=== PATIENT | female | born 2000 | race Two or more races ===

== ENCOUNTER 2025-03-25 19:19 | Emergency (ER) | payer MEDICAID, SELFPAY ==
[2025-03-25 19:20] VITALS: BMI 32.9
[2025-03-25 19:58] VITALS: BP 121/79; PULSE 88; RESP 18; TEMP 37.1; O2SAT 98
--- NOTE | 2025-03-25 20:10 | PD.EDRME ---
Rapid Medical Screening Exam RME Arrival date/time: 03/25/25 19:19 Chief Complaint: Abdominal Pain Time Seen by Provider: 03/25/25 19:32 Vital signs: Vital Signs Temperature 98.8 F 03/25/25 19:58 Pulse Rate 88 03/25/25 19:58 Respiratory Rate 18 03/25/25 19:58 Blood Pressure 121/79 03/25/25 19:58 Pulse Oximetry (%) 98 03/25/25 19:58 Oxygen Delivery Method Room Air 03/25/25 19:58 RME Narrative: Epigastric pain, nausea started today
--- NOTE | 2025-03-25 20:11 | XR_ITS ---
Examination: Abdomen sonogram, Limited Date and time of exam: March 25, 2025 10:31 PM INDICATIONS: Right upper abdominal pain beginning 5 hours ago Technique: Real-time monet scale transabdominal sonographic images of the upper abdomen obtained. Findings: Cholelithiasis, negative for cholecystitis Normal common bile duct 0.2 cm Pancreatic head 2.8 cm Liver 14.7 cm 23 mm focal area of probable fatty sparing Normal hepatopedal portal venous flow Patent IVC IMPRESSION: Cholelithiasis, negative for cholecystitis Recommend 6 month follow-up hepatic sonography to confirm focal fatty sparing right lobe of the liver
[2025-03-25 20:26] LABS: Basophils % (Auto) 0 % (0-2.5); Eosinophils % (Auto) 0 % (0-10); Hematocrit 37.6 % (36.0-46.0); Hemoglobin 13.1 g/dL (12.0-16.0); Immature Granulocytes % (Auto) 0 % (0-0); Immature Granulocytes Auto 0.03 Thou/mm3 (0.00-0.00); Lymphocytes # (Auto) 1.1 Thou/mm3 (1.0-4.8); Lymphocytes % (Auto) 11 % (10-50); Mean Corpuscular HGB Conc 34.8 g/dl (31.0-37.0); Mean Corpuscular Hemoglobin 28.6 pg (25.0-35.0); Mean Corpuscular Volume 82 fL (80-100); Monocytes # (Auto) 0.5 Thou/mm3 (0.0-0.8); Monocytes % (Auto) 5 % (0-12); Neutrophils # (Auto) 7.9 Thou/mm3 (1.8-7.7); Neutrophils % (Auto) 82 % (37-80); Nucleated Red Blood Cell % 0 /100 WBC (0); Platelet Count 210 Thou/mm3 (140-440); Red Blood Count 4.58 Miln/mm3 (4.00-5.20); White Blood Count 9.6 Thou/mm3 (3.6-11.0)
[2025-03-25 20:38] LABS: Collection Type, Urine Clean Catch
[2025-03-25 20:46] LABS: Alanine Aminotransferase 22 U/L (10-49); Albumin, Serum 4.4 gm/dL (3.5-5.0); Albumin/Globulin Ratio 1.3 (1.2-2.2); Alkaline Phosphatase 82 U/L (46-116); Anion Gap 9 (7-16); Aspartate Amino Transferase 26 U/L (0-34); BUN/Creatinine Ratio 13 Ratio (12-20); Bilirubin,Total 0.3 mg/dL (0.3-1.2); Blood Urea Nitrogen 9 mg/dL (9-23); Calcium 8.5 mg/dL (8.3-10.6); Calcium (Corrected) 8.5 mg/dL (8.5-10.1); Carbon Dioxide 24.2 mMol/L (20.0-31.0); Chloride 106 mMol/L (98-107); Creatinine (Component) 0.7 mg/dL (0.6-1.3); Estimated Creatinine Clearance 121.6 mL/min (>60); Globulin 3.5 gm/dL (2.3-3.5); Glucose 134 mg/dL (74-106); Lipase 29 U/L (12-53); Osmolality,Calculated 278 (275-295); Potassium 3.3 mMol/L (3.4-5.1); Sodium 139 mMol/L (136-145); Total Protein 7.9 gm/dL (5.7-8.2); eGFR > 60 See Note
[2025-03-25 20:50] LABS: HCG Qualitative,Urine Negative
[2025-03-25 20:51] LABS: Bilirubin,Urine Negative (Negative); Blood,Urine Trace (Negative); Clarity,Urine Turbid (Clear/Hazy); Color,Urine Yellow (Lt Yel-Yel); Glucose, Urine Negative (Negative); Ketones,Urine 1+ (Negative); Leukocyte Esterase,Urine Negative (Negative); Nitrite,Urine Negative (Negative); Protein,Urine 2+ (Neg - Trace); RBC,Urine 56 /hpf (0-3); Specific Gravity,Urine 1.041 (1.001-1.035); Squamous Epithelial Cell,Urine 38 /hpf (0-5); Urobilinogen,Urine Negative mg/dL (0.0-1.0); WBC,Urine 16 /hpf (0-5)
[2025-03-25] MEDS: ONDANSETRON ODT 4 MG TABRAP PO (21:22)
[2025-03-25] MEDS: KETOROLAC INJ 60 MG/2 ML VIAL 30 MG IM (21:24)
--- NOTE | 2025-03-25 23:06 | PD.EDABDPN ---
ED Abdominal Pain RME/HPI General Chief Complaint: Abdominal Pain Stated complaint: UMBILLICAL PAIN Time seen by provider: 03/25/25 19:32 Arrival date/time: 03/25/25 19:19 RME / HPI RME / HPI narrative: 24-year-old female patient with no significant medical history, came in for evaluation regarding right upper quadrant pain. Onset of symptoms since early today as right upper quadrant pain described as crampy, severity moderate. Denies any vomiting denies any fever denies any other complaints no medications taken prior to arrival. Related Data Home Medications ?Medication ?Instructions ?Recorded ?Confirmed vit no.95-ferrous 1 tab PO QDAY 07/22/22 10/18/22 fumarate 28 mg-folic acid 800 mcg tablet () Previous Rx's ?Medication ?Instructions ?Recorded methylcellulose (laxative) 500 mg 500 mg PO QDAY #30 tabs 12/26/22 tablet (Fiber Laxative (methylcellulose)) clindamycin HCl 300 mg capsule 300 mg PO TID #21 caps 08/12/23 ibuprofen 800 mg tablet 800 mg PO TID PRN pain #30 tabs 08/12/23 ibuprofen 800 mg tablet 800 mg PO TID PRN pain #30 tabs 10/15/23 dicyclomine 20 mg tablet 20 mg PO TID #30 tabs 03/25/25 ibuprofen 800 mg tablet 800 mg PO TID PRN pain #30 tabs 03/25/25 Allergies Allergy/AdvReac Type Severity Reaction Status Date / Time No Known Allergies Allergy Verified 10/15/23 14:14 Review of Systems Review of Systems Narrative Review of Systems: Review of system reviewed and within normal limits except mentioned in HPI ED Exam Narrative Physical exam: VITAL SIGNS: Reviewed. GENERAL APPEARANCE: Alert and interactive, follows commands, no acute distress, HEAD AND FACE: Non-traumatic. ENT: PERRL, pink conjunctivitis, eyelid no trauma, Mucous membrane moist. NECK: Supple, nontender, no nuchal rigidity. CHEST: No tenderness, no crepitus, no paradoxical movement, no retractions. LUNGS: Clear, well ventilated, symmetric, no rales, no wheezing, no ronchi, no stridor, good breath sounds bilaterally. HEART: Regular rate, regular rhythm, no murmur, no gallops. ABDOMEN: Soft, positive bowel sounds, nondistended, no guarding, right upper quadrant tenderness, no rebound, no masses, RECTAL: Deferred. GENITAL: Deferred. NEUROLOGICAL: Gross motor function intact sensory function intact, Appropriate for age. MUSCULOSKELETAL: low back nontender, full range of motion. EXTREMITIES: Nontender, full range of motion. SKIN: Color pink, dry, no rash, no lacerations, no abrasions, no contusions. LYMPHATICS: Deferred. Course Quality Measures none Orders Category Date Time Status US gall bladder Stat Exams 03/25/25 20:11 Taken CBC Stat Lab 03/25/25 20:20 Completed CMP [Comprehensive Metabolic Panel] Stat Lab 03/25/25 20:20 Completed HCG Qualitative,Urine Stat Lab 03/25/25 20:30 Completed Lipase Stat Lab 03/25/25 20:20 Completed UA [Urinalysis] Stat Lab 03/25/25 20:30 Completed Ketorolac Inj [Toradol Inj] Med 03/25/25 20:12 Discontinued 30 mg IM X1 ONE Ondansetron Odt [Zofran Odt] Med 03/25/25 20:12 Discontinued 4 mg PO X1 ONE Vital Signs Vital signs: Vital Signs Temperature 98.8 F 03/25/25 19:58 Pulse Rate 88 03/25/25 19:58 Respiratory Rate 18 03/25/25 19:58 Blood Pressure 121/79 03/25/25 19:58 Pulse Oximetry (%) 98 03/25/25 19:58 Oxygen Delivery Method Room Air 03/25/25 19:58 Abdominal Pain MDM MDM Narrative MDM Narrative:: 24-year-old female patient with no significant medical history, came in for evaluation regarding right upper quadrant pain. Onset of symptoms since early today as right upper quadrant pain described as crampy, severity moderate. Denies any vomiting denies any fever denies any other complaints no medications taken prior to arrival. Patient's workup today all came back unremarkable CBC no leukocytosis CMP no LFTs elevation total bili is normal. Urinalysis dirty collection. Ultrasound of the gallbladder showed cholelithiasis with no sign of acute cholecystitis. Results discussed with the patient. On reevaluation prior to discharge patient complained that her epigastric pain/right upper quadrant pain is totally gone. Patient was advised to follow-up with PCP and asked for referral to general surgeon regarding gallstones. Patient agrees with the plan Patient data External records reviewed:: None Clinical information provided by:: patient Social determinants that could affect healthcare access:: none Patient has the following chronic illnesses:: None How is presenting disease/condition affected by chronic disease/condition?: no chronic disease Evaluation data The following diagnostics were reviewed and interpreted by me:: lab results and radiology exam(s) Lab and/or radiology exams considered but not ordered:: None Interpretation Summary: See results MDM Medications / Prescriptions Medications or Prescriptions considered but not ordered:: None Medication administrations:: Medication Administration History Discontinued Medications Ketorolac Tromethamine (Ketorolac Inj 60 Mg/2 Ml Vial) 30 mg IM X1 ONE Stop: 03/25/25 20:13 Last Admin: 03/25/25 21:24 Dose: 30 mg Documented By: Ondansetron HCl (Ondansetron Odt 4 Mg Tabrap) 4 mg PO X1 ONE; Protocol Stop: 03/25/25 20:13 Last Admin: 03/25/25 21:22 Dose: 4 mg Documented By: Toradol and Zofran Consultations Consultation(s) initiated? (list below): No Diagnosis Differential diagnosis abdominal pain: abdominal pain, pancreatitis and other (Gallstone) Most likely diagnosis given after review of the tests above:: Biliary colic, gallstone Admission Indicated Admission indicated?: not indicated Explain why admission is indicated or not indicated:: Stable Admission Request Was there a request for admission?: No Disposition Plan Disposition Plan: Discharge Discharge Attestation Discharge Attestation: The patient and all family members were given an opportunity to ask questions and understood the discharge instructions. Discharge instructions specifically effects, indications for sooner follow up or return to the emergency department, and the expected course of current diagnosis. Patient condition: Stable Discharge Plan Plan Patient Disposition: HOME (Self Care) Discharge Disposition comment: Stable Prescriptions/Referrals Prescriptions/Med Rec: New dicyclomine 20 mg tablet 20 mg PO TID Qty: 30 0RF ibuprofen 800 mg tablet 800 mg PO TID PRN (Reason: pain) Qty: 30 0RF No Action PNV cmb#95-ferrous fumarate-FA [] 28 mg iron- 800 mcg tablet 1 tab PO QDAY Patient Comments: TAKE 1 TABLET BY MOUTH EVERY DAY FOR 30 DAYS ibuprofen 800 mg tablet 800 mg PO TID PRN (Reason: pain) Qty: 30 0RF Fiber Laxative(methylcellulos) 500 mg tablet 500 mg PO QDAY Qty: 30 0RF clindamycin HCl 300 mg capsule 300 mg PO TID Qty: 21 0RF ibuprofen 800 mg tablet 800 mg PO TID PRN (Reason: pain) Qty: 30 0RF Referrals: Guicho Francois MD [Primary Care Provider] - In 1 week Problem List Clinical Impression: Gallstone Patient/Caregiver Discharge Instructions Discharge Activity: activity as tolerated Education Materials: What Are Gallstones Additional Instructions: Thank you for the opportunity for serving you today. You are stable for discharged . You are advised to: Follow-up with your PCP in 1 to 2 days and ask your PCP to refer you to surgeon regarding your gallstone. Return to ED for worsening of symptoms Increase oral fluids Take medication as prescribed Print Language: Uzbek Stand Alone Forms: Isabel Award Info., Patient Portal Info Letter PA/JOSE Supervising Physician LYNSEY/JOSE Supervising Physician: MD Hardeep
[2025-03-25 23:12] VITALS: RESP 18
== END 2025-03-25 23:13 | disposition home or self-care (01) ==
PROVIDERS: Physician Assistant; Emergency Provider Emergency Medicine; PCP Family Medicine
DX: K80.20 Calculus of gallbladder without cholecystitis without obstruction (principal)
CPT/HCPCS: 36415; 76705; 80053; 81001; 81025; 83690; 85025; 96372; 99284; J1885; Q0162

== ENCOUNTER 2025-08-03 20:16 | Emergency (ER) | payer MEDICAID, SELFPAY ==
[2025-08-03 20:16] VITALS: BMI 33.6
[2025-08-03 21:50] VITALS: BP 108/69; PULSE 81; RESP 17; TEMP 37.2; O2SAT 98
--- NOTE | 2025-08-03 21:58 | XR_ITS ---
Examination: OB Transvaginal ultrasound of the pelvis, complete Technique: Transvaginal sonographic images pelvis performed using monet scale imaging Exam date and time: August 03, 2025, 1002 hrs. Indications: Pelvic pain and vaginal bleeding today Findings: Uterus 8.6 cm, intrauterine gestation with 5.8 cm corresponds to 5 weeks 4 days gestational age No pole, no cardiac activity Right ovary 4.9 cm arterial flow. Left ovary 3.5 cm arterial flow Mild fluid in the cul-de-sac Impression: Empty intrauterine gestational sac corresponding to 5 weeks 4 days gestational age Recommend short-term follow-up transvaginal pelvic sonography to confirm viability
--- NOTE | 2025-08-03 21:58 | PD.EDRME ---
Rapid Medical Screening Exam [facility] Arrival date/time: 08/03/25 20:16 24F at approximately 2-6 weeks and with no significant PMH presents to ED with 1 day of pelvic pain and vaginal spotting. Patient had positive at home test. Chief Complaint: Vaginal Bleeding Vital signs: Vital Signs Temperature 99.0 F 08/03/25 21:50 Pulse Rate 81 08/03/25 21:50 Respiratory Rate 17 08/03/25 21:50 Blood Pressure 108/69 08/03/25 21:50 Pulse Oximetry (%) 98 08/03/25 21:50 Oxygen Delivery Method Room Air 08/03/25 21:50
[2025-08-03 22:42] LABS: Basophils # (Auto) 0.1 Thou/mm3 (0.0-0.2); Basophils % (Auto) 1 % (0-2.5); Eosinophils # (Auto) 0.3 Thou/mm3 (0.0-0.5); Eosinophils % (Auto) 3 % (0-10); Hematocrit 33.7 % (36.0-46.0); Hemoglobin 11.6 g/dL (12.0-16.0); Immature Granulocytes Auto 0.02 Thou/mm3 (0.00-0.00); Lymphocytes # (Auto) 2.7 Thou/mm3 (1.0-4.8); Lymphocytes % (Auto) 31 % (10-50); Mean Corpuscular HGB Conc 34.4 g/dl (31.0-37.0); Mean Corpuscular Hemoglobin 29.2 pg (25.0-35.0); Mean Corpuscular Volume 85 fL (80-100); Monocytes # (Auto) 0.9 Thou/mm3 (0.0-0.8); Monocytes % (Auto) 10 % (0-12); Neutrophils # (Auto) 4.8 Thou/mm3 (1.8-7.7); Neutrophils % (Auto) 55 % (37-80); Nucleated Red Blood Cell # 0.00 Thou/mm3 (0.00-0.00); Nucleated Red Blood Cell % 0 /100 WBC (0); Platelet Count 273 Thou/mm3 (140-440); RDW Standard Deviation 39.8 fL (36.4-46.3); Red Blood Count 3.97 Miln/mm3 (4.00-5.20); White Blood Count 8.7 Thou/mm3 (3.6-11.0)
[2025-08-03 22:55] LABS: Collection Type, Urine Clean Catch
[2025-08-03 23:00] LABS: Amorphous Crystals,Urine Present (Absent); Bilirubin,Urine Negative (Negative); Blood,Urine 2+ (Negative); Clarity,Urine Clear (Clear/Hazy); Color,Urine Yellow (Lt Yel-Yel); Glucose, Urine Negative (Negative); Hyaline Casts,Urine < 1 /hpf (0-1); Ketones,Urine Trace (Negative); Leukocyte Esterase,Urine Positive (Negative); Nitrite,Urine Negative (Negative); PH,Urine 6.0 (5.0-7.0); Protein,Urine Trace (Neg - Trace); RBC,Urine 13 /hpf (0-3); Specific Gravity,Urine 1.030 (1.001-1.035); Squamous Epithelial Cell,Urine 7 /hpf (0-5); Urobilinogen,Urine Negative mg/dL (0.0-1.0); WBC,Urine 4 /hpf (0-5)
[2025-08-03 23:04] LABS: Alanine Aminotransferase 22 U/L (10-49); Albumin, Serum 4.3 gm/dL (3.5-5.0); Albumin/Globulin Ratio 1.4 (1.2-2.2); Alkaline Phosphatase 72 U/L (46-116); Anion Gap 7 (7-16); Aspartate Amino Transferase 15 U/L (0-34); BUN/Creatinine Ratio 10 Ratio (12-20); Bilirubin,Total 0.3 mg/dL (0.3-1.2); Blood Urea Nitrogen 6 mg/dL (9-23); Calcium 9.2 mg/dL (8.3-10.6); Calcium (Corrected) 9.2 mg/dL (8.5-10.1); Carbon Dioxide 24.1 mMol/L (20.0-31.0); Chloride 108 mMol/L (98-107); Creatinine (Component) 0.6 mg/dL (0.6-1.3); Estimated Creatinine Clearance 138.0 mL/min (>60); Globulin 3.0 gm/dL (2.3-3.5); Glucose 97 mg/dL (74-106); Osmolality,Calculated 275 (275-295); Potassium 3.4 mMol/L (3.4-5.1); Sodium 139 mMol/L (136-145); Total Protein 7.3 gm/dL (5.7-8.2); eGFR > 60 See Note
[2025-08-03 23:36] LABS: Beta HCG,Quantitative 9999 mIU/mL (<5.0)
[2025-08-04 00:04] VITALS: BP 122/72; PULSE 71; RESP 19; TEMP 36.7; O2SAT 98
--- NOTE | 2025-08-04 01:16 | PD.EDVAGBL ---
ED OB Contraction Preg RMI/HPI General Chief complaint: Vaginal Bleeding Stated complaint: VAGINAL BLEEDING SINCE 0700, + Time Seen by Provider: 08/03/25 23:23 Arrival date/time: 08/03/25 20:16 RME / HPI RME / HPI Narrative: 08/03/25 20:16 24F at approximately 2-6 weeks and with no significant PMH presents to ED with 1 day of pelvic pain and vaginal spotting. Patient had positive at home test. DR. GORDON MAIN ED EVALUATION: Patient LMP 06/17/2025 with recent positive test now presenting with vaginal bleeding/spotting earlier today. Mild cramping and reported LOVE. No nausea, vomiting, fever, chills, or diarrhea. PMH: Unremarkable PSH: Non-contributory. Social: No alcoholism or illicit drug use. Related Data Home Medications ?Medication ?Instructions ?Recorded ?Confirmed vit no.95-ferrous 1 tab PO QDAY 07/22/22 10/18/22 fumarate 28 mg-folic acid 800 mcg tablet () Previous Rx's ?Medication ?Instructions ?Recorded methylcellulose (laxative) 500 mg 500 mg PO QDAY #30 tabs 12/26/22 tablet (Fiber Laxative (methylcellulose)) clindamycin HCl 300 mg capsule 300 mg PO TID #21 caps 08/12/23 ibuprofen 800 mg tablet 800 mg PO TID PRN pain #30 tabs 08/12/23 ibuprofen 800 mg tablet 800 mg PO TID PRN pain #30 tabs 10/15/23 dicyclomine 20 mg tablet 20 mg PO TID #30 tabs 03/25/25 ibuprofen 800 mg tablet 800 mg PO TID PRN pain #30 tabs 03/25/25 promethazine 12.5 mg tablet 12.5 mg PO TID PRN nausea and 08/04/25 vomiting #14 tabs Allergies Allergy/AdvReac Type Severity Reaction Status Date / Time No Known Allergies Allergy Verified 08/03/25 20:16 Review of Systems Review of Systems Systems Reviewed: All systems reviewed, normal except as documented ED Exam Narrative Physical exam: GEN. APPEARANCE: The patient is alert awake oriented X-3 in no distress, lying down comfortably, does not look ill/toxic. Patient has good eye contact. Patient is cooperative. VITALS: All vitals were reviewed and the pulse ox is 98% on room air which is normal according to my interpretation. HEENT: Normocephalic, atraumatic. Pupils are equal and reactive. Oral mucosa is moist. Patent Nares NECK: Supple, nontender, no thyromegaly, no meningismus, no JVD, no step offs CHEST: Symmetrical, atraumatic, and with equal expansion , Nontender on palpation no deformity and no crepitus. CARDIOVASCULAR: Heart regular rhythm no murmur or gallop rub or extra beats. LUNGS: Clear to auscultation bilaterally with symmetrical chest rise. No laboring tachypnea or wheezing. No intercostal subcostal retraction. No rales and no rhonchi. ABDOMEN: Soft, flat, nontender to palpation, no guarding or rebound tenderness. There are no abnormal masses palpated. Active and normal bowel sounds. EXTREMITIES: Nontender. No edema. No cyanosis. Patient is able to move all 4 extremities well, with full ROM and good CSM. SKIN: Warm and dry, no jaundice or rashes noted. MUSCULOSKELETAL: No lubar or midline bony tenderness. There is no CVA tenderness. No paraspinal muscle spasm or tenderness. NEURO: Patient is SMITH x 4, Cranial nerves II through XII grossly intact. There is no focal neurologic deficits noted. GCS is 15, PNS and [place] LAYER appear grossly intact. PSYCHIATRIC: Patient is in normal mood and affect, cooperative, no SI or HI or hallucinations. Course Quality Measures none Orders Category Date Time Status US OB transvaginal Stat Exams 08/03/25 21:58 Completed ABO/RH Type Stat Lab 08/03/25 22:28 Completed Beta HCG,Quantitative Stat Lab 08/03/25 22:28 Completed CBC Stat Lab 08/03/25 22:28 Completed CMP [Comprehensive Metabolic Panel] Stat Lab 08/03/25 22:28 Completed UA [Urinalysis] Stat Lab 08/03/25 22:43 Completed Urine Culture Stat Lab 08/03/25 22:43 Received Acetaminophen Tab [Tylenol Tab] Med 08/04/25 01:14 Discontinued 1,000 mg PO X1 ONE Vital Signs Vital signs: Vital Signs Temperature 99.0 F 08/03/25 21:50 Pulse Rate 81 08/03/25 21:50 Respiratory Rate 17 08/03/25 21:50 Blood Pressure 108/69 08/03/25 21:50 Pulse Oximetry (%) 98 08/03/25 21:50 Oxygen Delivery Method Room Air 08/03/25 21:50 Vaginal Bleeding MDM Narrative MDM Narrative: Scribe Attestation: I, Dea Zeng, am scribing for and in the presence of Dr. Gordon. Provider Notation: Although this document has been carefully reviewed, there may still be some phonetic and other typographical errors. These errors are purely grammatical due to imperfections in the software program and should not be construed in any way to compromise the substance of the patient's medical care during this visit. Patient LMP 06/17/2025 with recent positive test now presenting with vaginal bleeding/spotting earlier today. Mild cramping and reported LOEV. Please see PE findings. Laboratory markers demonstrate mild anemia with hemoglobin of 11.6, normal white count and platelet count. Serum chemistries essentially unremarkable, Quantum HCG of 9999. Patient underwent pelvic US demonstrating blighted ovum with gestational sac corresponding to 5.4 weeks, although no cardiac activity or pole identified. Will instruct patient to return or return US and HCG in 5 days and discharge with precautionary instructions. Clinical impression includes threatened and blighted ovum. Patient data External records reviewed:: [facility] previous records (Reviewed prior ED records from 03/25/25. Patient was seen for Gallstone.) Clinical information provided by:: patient Social determinants that could affect healthcare access:: none Patient has the following chronic illnesses:: None reported How is presenting disease/condition affected by chronic disease/condition?: no chronic disease Evaluation data The following diagnostics were reviewed and interpreted by me:: lab results and radiology exam(s) Lab and/or radiology exams considered but not ordered:: None Interpretation Summary: RADIOLOGY Transvagional US: Findings: Uterus 8.6 cm, intrauterine gestation with 5.8 cm corresponds to 5 weeks 4 days gestational age No pole, no cardiac activity Right ovary 4.9 cm arterial flow. Left ovary 3.5 cm arterial flow Mild fluid in the cul-de-sac Impression: Empty intrauterine gestational sac corresponding to 5 weeks 4 days gestational age Recommend short-term follow-up transvaginal pelvic sonography to confirm viability Medications / Prescriptions Medications or Prescriptions considered but not ordered:: None Medication administrations:: Medication Administration History Discontinued Medications Acetaminophen (Acetaminophen 325 Mg Tablet) 1,000 mg PO X1 ONE Stop: 08/04/25 01:15 Last Admin: 08/04/25 01:39 Dose: 1,000 mg Documented By: MIKAYLA See above if any Consultations Consultation(s) initiated? (list below): No Diagnosis Vaginal Bleeding Differential Diagnosis: missed , threatened , dysfunctional uterine bleeding, incomplete , ectopic without intrauterine and vaginal bleeding Most likely diagnosis given after review of the tests above:: Missed , Blighted ovum Admission Indicated Admission indicated?: not indicated Explain why admission is indicated or not indicated:: Patient does not meet admission criteria Admission Request Was there a request for admission?: No Disposition Plan Disposition Plan: Discharge Discharge Attestation Discharge Attestation: The patient and all family members were given an opportunity to ask questions and understood the discharge instructions. Discharge instructions specifically effects, indications for sooner follow up or return to the emergency department, and the expected course of current diagnosis. Patient condition: Stable Discharge Plan Plan Patient Disposition: HOME (Self Care) Discharge Disposition comment: stable Prescriptions/Referrals Prescriptions/Med Rec: New promethazine 12.5 mg tablet 12.5 mg PO TID PRN (Reason: nausea and vomiting) Qty: 14 0RF No Action PNV no.95-ferrous fumarate-FA [] 28 mg iron- 800 mcg tablet 1 tab PO QDAY Patient Comments: TAKE 1 TABLET BY MOUTH EVERY DAY FOR 30 DAYS ibuprofen 800 mg tablet 800 mg PO TID PRN (Reason: pain) Qty: 30 0RF dicyclomine 20 mg tablet 20 mg PO TID Qty: 30 0RF ibuprofen 800 mg tablet 800 mg PO TID PRN (Reason: pain) Qty: 30 0RF Fiber Laxative(methylcellulos) 500 mg tablet 500 mg PO QDAY Qty: 30 0RF clindamycin HCl 300 mg capsule 300 mg PO TID Qty: 21 0RF ibuprofen 800 mg tablet 800 mg PO TID PRN (Reason: pain) Qty: 30 0RF Referrals: Guicho Francois MD [Primary Care Provider, Family Practice] - In 1 week Problem List Clinical Impression: Missed , Blighted ovum Patient/Caregiver Discharge Instructions Diet Instructions: Force fluids Education Materials: ED Possible Miscarriage ... Additional Instructions: Force fluids/maintain adequate rest/avoid pelvic sex/Tylenol as needed for pain. Promethazine for nausea as needed and return for repeat ultrasound/HCG in 5 days. Print Language: Cook Islander Stand Alone Forms: Isabel Award Info., Patient Portal Info Letter
[2025-08-04] MEDS: ACETAMINOPHEN 325 MG TABLET 1000 MG PO (01:39)
== END 2025-08-04 01:43 | disposition home or self-care (01) ==
PROVIDERS: Physician Assistant; Emergency Provider Emergency Medicine; PCP Family Medicine
DX: O02.0 Blighted ovum and nonhydatidiform mole (principal)
CPT/HCPCS: 36415; 76817; 80053; 81001; 84702; 85025; 86900; 86901; 87086; 99283; A9270